=== PATIENT | male | born 1960 | race Hispanic/Latino ===

== ENCOUNTER 2024-11-19 10:02 | Emergency (ER) | payer BC, MEDICARE ==
[~2024-11-19] VITALS: Ht 160 cm; Wt 64.5 kg
[2024-11-19] MEDS ORDERED: ZANFEL30 GM TOP (10:49)
[2024-11-19] MEDS ORDERED: CETIRIZINE HCL10 MG PO (10:49)
[2024-11-19] MEDS ORDERED: HYDROCORTISONE114 GM TOP (10:49)
[2024-11-19] MEDS ORDERED: BENADRYL25 M1 PO (10:49)
[2024-11-19] MEDS ORDERED: PREDNISONE50 MG PO (10:49)
[2024-11-19] MEDS ORDERED: CLEOCIN HCL300 MG PO (10:52)
[2024-11-19] MEDS ORDERED: DEXAMETHASONE SOD PHOS 10 MG/1 ML VIAL IM ONE (11:00)
[2024-11-19] MEDS: DIPHENHYDRAMINE HCL INJ 50 MG/ML VIAL IM ONE (12:13)
[2024-11-19] MEDS: DEXAMETHASONE SOD PHOS INJ 4 MG/ML SDV IM ONE (12:13)
[2024-11-19] MEDS: TETANUS/DIPHTHERIA TOX ADULT 0.5 ML SYR IM ONE (12:14)
[2024-11-19 12:15] VITALS: PULSE 58; RESP 16; TEMP 98.2; O2SAT 98
== END 2024-11-19 12:21 | disposition home or self-care (01) ==
LOC: FSED 10:10
DX: L25.9 Unspecified contact dermatitis, unspecified cause (principal); S80.811A Abrasion, right lower leg, initial encounter
CPT/HCPCS: 90471; 90714; 96372; 99283; J1100; J1200